=== PATIENT | male | born 1945 | race African-American/Black ===

== ENCOUNTER → 2019-06-12 | Day surgery (SDC) | payer MEDICARE ==
[2019-06-07 10:24] LABS: BASOPHILS % 0.4 % (0.0-1.0); EOSINOPHILS # (AUTO) 0.4 (0.0-0.4); EOSINOPHILS % 9.5 % (0.0-6.0); HEMATOCRIT 45.2 % (38.2-49.6); HEMOGLOBIN 15.4 g/dL (14.0-18.0); LYMPHOCYTES # (AUTO) 1.8 (1.0-3.2); LYMPHOCYTES % 40.7 % (18.0-39.1); MEAN CORPUSCULAR HGB CONC 34.1 g/dL (31-35); MEAN CORPUSCULAR VOLUME 90.9 fL (81-99); MONOCYTES # (AUTO) 0.4 (0.2-0.8); MONOCYTES % 8.8 % (4.4-11.3); NEUTROPHILS # (AUTO) 1.8 (2.1-6.9); NEUTROPHILS % 40.4 % (38.7-80.0); PLATELET COUNT 265 x10e3/uL (140-360); RED BLOOD COUNT 4.97 x10e6/uL (4.3-5.7); RED CELL DISTRIBUTION WIDTH 13.3 % (11.7-14.4)
[2019-06-07 10:47] LABS: ALANINE AMINOTRANSFERASE 30 IU/L (0-55); ALBUMIN 4.1 g/dL (3.5-5.0); ALBUMIN/GLOBULIN RATIO 1.1 (0.8-2.0); ALKALINE PHOSPHATASE 86 IU/L (40-150); ANION GAP 15.8 mmol/L (8-16); BLOOD UREA NITROGEN 12 mg/dL (7-26); BUN/CREATININE RATIO 12 (6-25); CALCIUM 9.7 mg/dL (8.4-10.2); CARBON DIOXIDE 26 mmol/L (22-29); CHLORIDE 99 mmol/L (98-107); CREATININE, SERUM 0.97 mg/dL (0.72-1.25); EST GLOMERULAR FILTRATION RATE > 60 ML/MIN (60-); GLUCOSE 87 mg/dL (74-118); POTASSIUM 3.8 mmol/L (3.5-5.1); SODIUM 137 mmol/L (136-145)
[~2019-06-12] VITALS: Ht 180.3 cm; Wt 90.7 kg
[2019-06-12] VITALS (14 sets, daily range): BP systolic 105–169; BP diastolic 78–108
[~2019-06-12] MED LIST: ALPRAZOLAM 0.5 MG TAB ONE; AMLODIPINE BESY10 MG PO; ASPIR 8181 MG PO; ASPIRIN 325 MG TAB ONE; ATORVASTATIN CA20 MG PO; ATROPINE SULFATE 0.1 MG/ML 10ML SYR ONE; BIVALRIUDIN 250 MG/VIAL VIAL IV ONE; CLONIDINE HCL0.2 MG PO; CLOPIDOGREL75 MG PO; DIPHENHYDRAMINE HCL 25 MG CAP ONE; FENTANYL CITRATE/PF 100MCG/2 ML INJ ONE; HEPARIN SOD/SOD CHLORIDE 2,000 ML ONE; HYDROCHLOROTHIA25 MG PO; IOPAMIDOL 370 MG/ML 200 ML INFUS..BTL INJ ONE; LIDOCAINE HCL 2% LOCAL 20 ML VIAL ONE; MIDAZOLAM HCL 2 MG/2 ML VIAL ONE; PRASUGREL 10 MG TAB ONE; SODIUM CHLORIDE 0.9% 1000ML 1,000 ML ONE; SODIUM CHLORIDE 0.9% 50ML 50 ML ONE; VERAPAMIL HCL 2.5 MG/ML 2 ML VIAL ONE
--- NOTE | 2019-06-12 13:35 | NUR ---
bedside report received from Ebenezer Pratt RN. Alert oriented and appropriate, PERRLA, respirations even and unlabored to room air. Pulses x4 extremities equal and strong. right radial TR band Cap fill brisk < 3 sec + neurovascular function present. Skin warm and dry integrity appears intact. IV 20g to left hand presents healthy w/o s/s of infiltration or complaint. Abdomen soft and supple. pt offered toileting, denies need to urinate or defecate. Personal affects with patient. Family not available. Pt verbalizes understanding of POC. on bedside monitor. Currently w/o complaint of pain or need. TR band near completion of removal. VS trend consistent with pt. baeline. assume of care
--- NOTE | 2019-06-12 13:56 | Operative Report ---
DATE OF PROCEDURE: 06/12/2019 SURGEON: Andriy Lantigua MD INDICATIONS: Coronary artery disease, abnormal stress test. PROCEDURES PERFORMED: 1. Left heart catheterization, selective coronary angiography. 2. Stent placement to the mid right coronary artery. 3. Deployment of right wrist TR band. COMPLICATIONS: None. RECOMMENDATIONS: Dual antiplatelet therapy for at least 6 months, staged intervention of the obtuse marginal branch of the circumflex artery. DESCRIPTION OF PROCEDURE: Access obtained in the right radial artery. A 5-[place] sheath was placed. Angiomax administered for anticoagulation. Coronary angiography demonstrated 50% stenosis of the proximal left anterior descending artery. Remaining vessel had diffuse 30% to 50% stenosis. A large 1st obtuse marginal branch had 80% proximal stenosis, circumflex 50% proximal stenosis. Right coronary artery proximal 50%, mid 80% stenosis. LV end-diastolic pressure of 10. No gradient across the aortic valve on pullback. A decision was made to intervene on the right coronary artery. Right coronary artery was cannulated using IR1 guiding catheter. Short loose wires advanced across the lesion. Primary stent 2.5 x 12 mm deployed at 14 atmospheres. Excellent end result, less than 10% residual stenosis, ELIUD-3 flow. No complications. Right wrist TR band applied. The patient discharged home same day. MD TEJ Lua/MODL /[id number]
--- NOTE | 2019-06-12 14:15 | NUR ---
TR band removed and dressing applied. Pt produced 600 ml of clear yellow urine. family notified of expected DC time.
--- NOTE | 2019-06-12 16:00 | NUR ---
Pt meets DC criteria. right radial assessed for s/s of complication and presence of hematoma. overall skin warm, dry, no discolor, and pulses present. IV removed from left hand. Distal tip appears intact. VS WNL. Pt denies pain, sob, or need at this time. Family at bedside. Review of discharge paperwork and follow up instructions. verbalized understanding. Pt to wheelchair and transported to front of hospital. Transferred to private vehicle under own strength w/o incident with DC paperwork in hand. - cgf
== END | disposition home or self-care (01) ==
LOC: CATH LAB 07:06
PROVIDERS: ATTEND Internal Medicine Interventional Cardiology
DX: I25.10 Atherosclerotic heart disease of native coronary artery without angina pectoris (principal); R94.39 Abnormal result of other cardiovascular function study; Z01.812 Encounter for preprocedural laboratory examination; Z79.82 Long term (current) use of aspirin; Z68.30 Body mass index [BMI] 30.0-30.9, adult
CPT/HCPCS: 93458; C9600; 36415; 80053; 85025; 92928; C1769; C1874; C1887; J0583; J2001; J2250; J3010; J7030; Q9967

== ENCOUNTER → 2019-06-26 | Day surgery (SDC) | payer MEDICARE ==
[2019-06-22 13:51] LABS: BASOPHILS % 0.7 % (0.0-1.0); EOSINOPHILS # (AUTO) 0.4 (0.0-0.4); EOSINOPHILS % 6.1 % (0.0-6.0); HEMATOCRIT 45.2 % (38.2-49.6); HEMOGLOBIN 15.5 g/dL (14.0-18.0); LYMPHOCYTES # (AUTO) 1.7 (1.0-3.2); LYMPHOCYTES % 27.8 % (18.0-39.1); MEAN CORPUSCULAR HEMOGLOBIN 30.8 pg (28-32); MEAN CORPUSCULAR HGB CONC 34.3 g/dL (31-35); MEAN CORPUSCULAR VOLUME 89.7 fL (81-99); MONOCYTES # (AUTO) 0.5 (0.2-0.8); MONOCYTES % 8.1 % (4.4-11.3); NEUTROPHILS # (AUTO) 3.4 (2.1-6.9); PLATELET COUNT 287 x10e3/uL (140-360); RED BLOOD COUNT 5.04 x10e6/uL (4.3-5.7); RED CELL DISTRIBUTION WIDTH 13.2 % (11.7-14.4)
[2019-06-22 14:08] LABS: ALANINE AMINOTRANSFERASE 28 IU/L (0-55); ALBUMIN 4.5 g/dL (3.5-5.0); ALBUMIN/GLOBULIN RATIO 1.3 (0.8-2.0); ALKALINE PHOSPHATASE 86 IU/L (40-150); ANION GAP 16.3 mmol/L (8-16); BLOOD UREA NITROGEN 12 mg/dL (7-26); BUN/CREATININE RATIO 12 (6-25); CALCIUM 10.3 mg/dL (8.4-10.2); CARBON DIOXIDE 27 mmol/L (22-29); CHLORIDE 101 mmol/L (98-107); CREATININE, SERUM 0.99 mg/dL (0.72-1.25); EST GLOMERULAR FILTRATION RATE > 60 ML/MIN (60-); GLUCOSE 87 mg/dL (74-118); POTASSIUM 3.3 mmol/L (3.5-5.1); SODIUM 141 mmol/L (136-145)
[2019-06-26] VITALS (15 sets, daily range): BP systolic 119–151; BP diastolic 82–99
[~2019-06-26] VITALS: Ht 180.3 cm; Wt 90.7 kg
[~2019-06-26] MED LIST changes: +HEPARIN SOD/SOD CHLORIDE 0 ML ONE; +SODIUM CHLORIDE 0.9% 1000ML 0 ML ONE
--- NOTE | 2019-06-26 12:44 | Operative Report ---
DATE OF PROCEDURE: 06/26/2019 SURGEON: Andriy Lantigua MD INDICATION: Coronary artery disease, staged intervention. PROCEDURES PERFORMED: 1. Left heart catheterization. 2. Selective coronary angiography. 3. Stent placement of the proximal obtuse marginal branch of the circumflex artery. 4. Deployment of right wrist TR band. COMPLICATIONS: None. RECOMMENDATIONS: Dual antiplatelet therapy for at least 6 months. DESCRIPTION OF PROCEDURE: Access obtained in the right radial artery. A 6-[place] sheath was placed. Angiomax was administered for anticoagulation. The left main was cannulated using an XB3.56-[place] guiding catheter, 80% stenosis in the proximal obtuse marginal branch of the circumflex artery. A short wire was advanced across the lesion for support. Primary stent 3.0 x 12 mm synergy stent post dilated in the proximal portion of the 3.25 mm balloon at 20 atmospheres. Excellent end result, less than 10% residual stenosis ELIUD-3 flow. No complications. Wire and guide sheath removed. TR band applied. The patient was discharged home same day. MD TEJ Lua/RENATAL /[id number]
--- NOTE | 2019-06-26 14:45 | NUR ---
bedside report received from Lilia Do RN. Alert oriented and appropriate, PERRLA, respirations even and unlabored to room air. Pulses x4 extremities equal and strong. Cap fill brisk < 3 sec. + neurovascular function of right hand present. Skin warm and dry integrity appears intact. IV 22g to left AC area presents healthy w/o s/s of infiltration or complaint. Abdomen soft and supple. pt offered toileting, denies need to urinate or defecate. Personal affects with patient. Family coming to pickup pt. Pt verbalizes understanding of POC. currently on bedside monitor. Currently w/o complaint of pain or need. Bed low and locked, side rails up x2, call light within reach. no gross issues at this time. assume of care. -cgf
--- NOTE | 2019-06-26 15:10 | NUR ---
Pt meets DC criteria. right radial assessed for s/s of complication and presence of hematoma. general skin warm, dry, no discolor, and pulses present. IV removed from left AC area, Distal tip appears intact. VS WNL. Pt denies pain, sob, or need at this time. Family at front with vehicle. Review of discharge paperwork and follow up instructions. verbalized understanding. Pt to wheelchair and transported to front of hospital. Transferred to private vehicle under own strength w/o incident with DC paperwork in hand. - cgf
== END | disposition home or self-care (01) ==
LOC: CATH LAB 07:05
PROVIDERS: ATTEND Internal Medicine Interventional Cardiology
DX: I25.119 Atherosclerotic heart disease of native coronary artery with unspecified angina pectoris (principal); Z01.812 Encounter for preprocedural laboratory examination; Z79.02 Long term (current) use of antithrombotics/antiplatelets
CPT/HCPCS: 36415; 80053; 85025; C1725; C1769 ×2; C1874; C1887; C9600; J0583; J2001; J2250; J3010; J7030; Q9967; 92928